=== PATIENT | male | born 1990 | race Hispanic/Latino ===

== ENCOUNTER 2020-11-06 12:43 | Emergency (ER) | payer BC ==
[2020-11-06] MEDS ORDERED: IBUPROFEN 400 MG TAB ONE (15:01)
[2020-11-06] MEDS ORDERED: ACETAMINOPHEN 325 MG TABLET ONE (15:01)
--- NOTE | 2020-11-06 15:51 | EDPHYS ---
Physician Documentation [facility] Name: Hipolito Vieyra Age: 30 yrs Sex: Male : 1990 Arrival Date: 11/06/2020 Time: 12:46 Bed 28 Private MD: ED Physician Mt Peters HPI: 11/06 14:45 This 30 yrs old Male presents to ER via Ambulatory with complaints of Migraine.cp 14:45 The patient complains of pain to the top of head and forehead. cp 14:45 The patient describes the headache as aching. cp 14:45 Onset: The symptoms/episode began/occurred 4 day(s) ago. Associated signs and symptoms: cp Pertinent positives: fever, sore throat, body aches. 14:45 Severity of symptoms: in the emergency department the pain is unchanged, despite home cp interventions. Historical: - Allergies: 13:07 No Known Drug Allergies; ll1 - PMHx: 13:07 Asthma; ll1 - PSHx: 13:07 Hernia repair; ll1 - Immunization history:: Flu vaccine is not up to date. - Social history:: Smoking status: Patient denies any tobacco usage or history of. ROS: 14:50 Constitutional: Positive for body aches, Negative for fever, poor PO intake. cp 14:50 Eyes: Negative for injury, pain, redness, and discharge. cp 14:50 ENT: Positive for sore throat, Negative for drainage from ear(s), ear pain, difficulty swallowing, difficulty handling secretions. 14:50 Neck: Negative for pain with movement, pain at rest, stiffness. 14:50 Cardiovascular: Negative for chest pain, palpitations. 14:50 Respiratory: Negative for cough, shortness of breath, wheezing. 14:50 Abdomen/GI: Negative for abdominal pain, diarrhea, constipation, active vomiting. 14:50 Neuro: Positive for headache, Negative for altered mental status, weakness. 14:50 All other systems are negative. Exam: 14:55 Constitutional: The patient appears in no acute distress, alert, awake, comfortable, cp non-toxic, well developed, well nourished. 14:55 Head/Face: Normocephalic, atraumatic. cp 14:55 Eyes: Periorbital structures: appear normal, Conjunctiva: normal, no exudate, no injection, Sclera: no appreciated abnormality, Lids and lashes: appear normal, bilaterally. 14:55 ENT: External ear(s): are unremarkable, Ear canal(s): are normal, clear, TM's: dullness, bilaterally, Nose: is normal, Mouth: Lips: moist, Oral mucosa: moist, Posterior pharynx: Airway: no evidence of obstruction, patent, Tonsils: no enlargement, no exudate, erythema, that is mild, exudate, is not appreciated. 14:55 Neck: ROM/movement: is normal, is supple, no meningismus, no nuchal rigidity, Lymph nodes: no appreciated lymphadenopathy. 14:55 Chest/axilla: Inspection: normal, Palpation: is normal, no crepitus, no tenderness. 14:55 Cardiovascular: Rate: normal, Rhythm: regular. 14:55 Respiratory: the patient does not display signs of respiratory distress, Respirations: normal, no use of accessory muscles, no retractions, labored breathing, is not present, Breath sounds: are clear throughout, no decreased breath sounds, no stridor, no wheezing. 14:55 Abdomen/GI: Inspection: abdomen appears normal, Palpation: abdomen is soft and non-tender, in all quadrants. 14:55 Neuro: Orientation: to person, place \T\ time. Mentation: is normal, Cerebellar function: is grossly normal, Motor: moves all fours, strength is normal, Sensation: is normal, Gait: is steady, at a normal pace, without difficulty. Vital Signs: 13:04 BP 124 / 68; Pulse 65; Resp 17; Temp 98.5; Pulse Ox 98% ; Weight 72.57 kg; Height 5 ft. ll1 10 in. (177.80 cm); Pain 6/10; 14:21 BP 133 / 74 RA (auto/reg); Pulse 63; Resp 18; Temp 98.2(O); Pulse Ox 98% on R/A; Pain jp3 6/10; 13:04 Body Mass Index 22.96 (72.57 kg, 177.80 cm) ll1 MDM: 14:23 Patient medically screened. cp 15:50 Data reviewed: vital signs, nurses notes, lab test result(s). cp 15:50 Differential diagnosis: meningitis, migraine, sinusitis. Counseling: I had a detailed cp discussion with the patient and/or guardian regarding: the historical points, exam findings, and any diagnostic results supporting the discharge/admit diagnosis, lab results, to return to the emergency department if symptoms worsen or persist or if there are any questions or concerns that arise at home. Response to treatment: the patient's symptoms have mildly improved after treatment, and as a result, I will discharge patient. 11/06 14:39 Order name: Strep 11/06 14:39 Order name: Influenza Screen (a \T\ B) 11/06 14:40 Order name: Group A Streptococcus Rapid Sc; Complete Time: 15:34 EDMI 11/06 15:34 Interpretation: Reviewed. 11/06 14:40 Order name: Influenza Screen (A ; Complete Time: 15:34 EDMS 11/06 15:35 Interpretation: Reviewed. 11/06 15:33 Order name: Throat Culture EDMI 11/06 15:49 Order name: COVID-19 iw Administered Medications: 14:50 Drug: Tylenol 650 mg Route: PO; iw 14:50 Drug: Ibuprofen 800 mg Route: PO; iw Disposition: 11/07 07:05 Co-signature as Attending Physician, Mt Peters MD. rn Disposition: 11/06/20 15:51 Discharged to Home. Impression: Headache. - Condition is Stable. - Discharge Instructions: General Headache Without Cause, COVID-19. - Prescriptions for Naprosyn 500 mg Oral Tablet - take 1 tablet by ORAL route 2 times per day take with food; 20 tablet. - Work release form, Medication Reconciliation Form, Thank You Letter, Antibiotic Education, Prescription Opioid Use form. - Follow up: Private Physician; When: 2 - 3 days; Reason: Worsening of condition. - Problem is new. - Symptoms have improved. Signatures: Dispatcher [employer] EDMI Yesica Cardozo RN RN iw Mt Peters MD MD rn Page, Corey, PA PA cp Lewis, Lynsay, RN RN ll1 Corrections: (The following items were deleted from the chart) 11/06 16:06 15:51 11/06/2020 15:51 Discharged to Home. Impression: Headache. Condition is Stable. iw Forms are Medication Reconciliation Form, Thank You Letter, Antibiotic Education, Prescription Opioid Use. Follow up: Private Physician; When: 2 - 3 days; Reason: Worsening of condition. Problem is new. Symptoms have improved. cp
--- NOTE | 2020-11-06 15:51 | ER ---
Nurse's Notes [facility] Name: Hipolito Vieyra Age: 30 yrs Sex: Male : 1990 Arrival Date: 11/06/2020 Time: 12:46 Bed 28 Private MD: Diagnosis: Headache Presentation: 11/06 13:04 Chief complaint: Patient states: [place], itchy throat, fatigue, weakness since 11/02. No ll1 appetite. [place] hot 11/02. Coronavirus screen: Client denies travel out of the [place] in the last 14 days. fatigue, headache, sore throat, Client presents with at least one sign or symptom that may indicate coronavirus-19. Standard/surgical mask placed on the client. Ebola Screen: Patient denies travel to an Ebola-affected area in the 21 days before illness onset. Initial Sepsis Screen: Does the patient meet any 2 criteria? No. Patient's initial sepsis screen is negative. Does the patient have a suspected source of infection? Yes: Other: headache, malaise. Risk Assessment: Do you want to hurt yourself or someone else? Patient reports no desire to harm self or others. Onset of symptoms was November 02, 2020. 13:04 Method Of Arrival: Ambulatory ll1 13:04 Acuity: HUNG 3 ll1 Historical: - Allergies: 13:07 No Known Drug Allergies; ll1 - PMHx: 13:07 Asthma; ll1 - PSHx: 13:07 Hernia repair; ll1 - Immunization history:: Flu vaccine is not up to date. - Social history:: Smoking status: Patient denies any tobacco usage or history of. Vital Signs: 13:04 BP 124 / 68; Pulse 65; Resp 17; Temp 98.5; Pulse Ox 98% ; Weight 72.57 kg; Height 5 ft. ll1 10 in. (177.80 cm); Pain 6/10; 14:21 BP 133 / 74 RA (auto/reg); Pulse 63; Resp 18; Temp 98.2(O); Pulse Ox 98% on R/A; Pain jp3 6/10; 13:04 Body Mass Index 22.96 (72.57 kg, 177.80 cm) ll1 ED Course: 12:46 Patient arrived in ED. rg4 13:07 Triage completed. ll1 13:07 Arm band placed on Patient placed in an exam room, on a stretcher. ll1 14:17 Manan Díaz PA is PHCP. cp 14:17 Mt Peters MD is Attending Physician. cp 14:22 Bed in low position. Call light in reach. Verbal reassurance given. Pulse ox on. NIBP jp3 on. 14:22 Patient maintains SpO2 saturation greater than 95% on room air. jp3 14:42 Yesica Cardozo, RN is Primary Nurse. iw 14:45 Flu and/or RSV swab sent to lab. Strep swab sent to lab. jp3 Administered Medications: 14:50 Drug: Tylenol 650 mg Route: PO; iw 14:50 Drug: Ibuprofen 800 mg Route: PO; iw Outcome: 15:51 Discharge ordered by . cp 16:06 Patient left the ED. iw Addendum: 11/09/2020 17:34 Addendum: COVID-19 Result: Positive result giiven to ED physician to notify pt. i w Physician: Manan Johnston MD Physician was able to contact pt and pt was notified of positive COVID-19 swab result. Physician answered pt questions. Signatures: Yesica Cardozo, RN RN iw Manan Díaz PA PA Elsa Zepeda rg4 Jerome Lubin jp3 Eduardo Gama RN RN ll1
[2020-11-06 16:10] VITALS: O2SAT 98
[2020-11-06 16:12] VITALS: BP 133/74; TEMP 98.2
== END 2020-11-06 16:06 | disposition home or self-care (01) ==
LOC: ER 12:43
DX: U07.1 COVID-19 (principal)
CPT/HCPCS: 87070; 87081; 87804 ×2; 99284; U0002

== ENCOUNTER 2021-05-18 22:52 | Emergency (ER) | payer BC ==
[2021-05-19] MEDS ORDERED: dexAMETHasone 10 MG/ML VIAL ONE (00:10)
[2021-05-19] MEDS ORDERED: KETOROLAC 30 MG/ML INJ ONE (00:10)
--- NOTE | 2021-05-19 01:44 | ER ---
Nurse's Notes [facility] Name: Hipolito Vieyra Age: 31 yrs Sex: Male : 1990 Arrival Date: 05/18/2021 Time: 22:56 Bed 19 Private MD: Diagnosis: Acute tonsillitis, unspecified;Pharyngitis Presentation: 05/18 23:12 Chief complaint: Patient states: trouble breathing and sore throat for 1.5 days, denies em fever or cough. Coronavirus screen: Client denies travel out of the [place] in the last 14 days. Ebola Screen: Patient negative for fever greater than or equal to 101.5 degrees Fahrenheit, and additional compatible Ebola Virus Disease symptoms Patient denies exposure to infectious person. Patient denies travel to an Ebola-affected area in the 21 days before illness onset. No symptoms or risks identified at this time. Initial Sepsis Screen: Does the patient meet any 2 criteria? No. Patient's initial sepsis screen is negative. Does the patient have a suspected source of infection? No. Patient's initial sepsis screen is negative. Risk Assessment: Do you want to hurt yourself or someone else? Patient reports no desire to harm self or others. Onset of symptoms was May 18, 2021. 23:12 Method Of Arrival: Ambulatory em 23:12 Acuity: HUNG 4 em Historical: - Allergies: 23:13 No Known Allergies; em - PMHx: 23:13 Asthma; em - PSHx: 23:13 hernia repair; em - Immunization history:: Adult Immunizations not up to date. - Social history:: Smoking status: Patient denies any tobacco usage or history of. Screenin:22 Abuse screen: Denies threats or abuse. Nutritional screening: No deficits noted. ea Tuberculosis screening: No symptoms or risk factors identified. Fall Risk None identified. Assessment: 23:22 General: Appears uncomfortable, Behavior is calm, cooperative, appropriate for age. ea Pain: Complains of pain in sore throat. Neuro: Level of Consciousness is awake, alert, obeys commands, Oriented to person, place, time. Cardiovascular: Patient's skin is warm and dry. Respiratory: Airway is patent Respiratory effort is even, unlabored, Respiratory pattern is regular, symmetrical. Derm: Skin is pink, warm \T\ dry. 05/19 00:00 Reassessment: Patient and/or family updated on plan of care and expected duration. Pain ea level reassessed. Patient is alert, oriented x 3, equal unlabored respirations, skin warm/dry/pink. 01:11 Reassessment: Patient and/or family updated on plan of care and expected duration. Pain ea level reassessed. Patient is alert, oriented x 3, equal unlabored respirations, skin warm/dry/pink. Vital Signs: 05/18 23:12 BP 135 / 84; Pulse 83; Resp 16; Temp 99.3; Pulse Ox 98% on R/A; Weight 72.57 kg; Height em 5 ft. 10 in. (177.80 cm); 23:12 Body Mass Index 22.96 (72.57 kg, 177.80 cm) em ED Course: 22:56 Patient arrived in ED. es 23:13 Triage completed. em 23:14 Arm band placed on. em 23:22 Gladys Delgado RN is Primary Nurse. ea 23:22 Patient has correct armband on for positive identification. Bed in low position. Call ea light in reach. 23:31 Peter Gunn MD is Attending Physician. [facility] 05/19 01:42 Jess Woodruff MD is Referral Physician. [facility] 01:45 No provider procedures requiring assistance completed. Patient did not have IV access ea during this emergency room visit. Administered Medications: 05/18 23:56 Drug: Ketorolac 60 mg Route: IM; Site: left deltoid; ea 05/19 01:50 Follow up: Response: No adverse reaction ea 05/18 23:56 Drug: Decadron (dexamethasone) 10 mg Route: IM; Site: right deltoid; ea 05/19 01:50 Follow up: Response: No adverse reaction ea Outcome: 01:43 Discharge ordered by . [facility] 01:45 Condition: stable ea 01:53 Discharged to home ambulatory, with family. ea 01:53 Discharge instructions given to patient, Instructed on discharge instructions, follow up and referral plans. medication usage, Demonstrated understanding of instructions, follow-up care, medications, Prescriptions given X 2. 01:54 Patient left the ED. ea Signatures: Isabelle Rockwell Edgar, RN RN Gladys Delgado RN RN ea Holmes, Maurice, MD MD mh7
--- NOTE | 2021-05-19 01:44 | EDPHYS ---
Physician Documentation [facility] Name: Hipolito Vieyra Age: 31 yrs Sex: Male : 1990 Arrival Date: 05/18/2021 Time: 22:56 Bed 19 Private MD: ED Physician Peter Gunn HPI: 05/19 00:17 This 31 yrs old Male presents to ER via Ambulatory with complaints of mh7 Breathing Difficulty. 00:17 The patient presents with sore throat. The patient describes throat pain as mh7 intermittent, scratchy. Onset: The symptoms/episode began/occurred 2 day(s) ago. Severity of symptoms: At their worst the symptoms were moderate, yesterday, in the emergency department the symptoms are unchanged. Modifying factors: The symptoms are alleviated by nothing, the symptoms are aggravated by swallowing, The patient has had contact with sick co-worker(s). 00:18 Associated signs and symptoms: Pertinent positives: dysphagia, Sore throat Pertinent mh7 negatives chest pain, chills, cough, diarrhea, earache, fever, flu-like symptoms, headache, nausea, rhinorrhea, shortness of breath, vomiting. Historical: - Allergies: 05/18 23:13 No Known Allergies; em - PMHx: 23:13 Asthma; em - PSHx: 23:13 hernia repair; em - Immunization history:: Adult Immunizations not up to date. - Social history:: Smoking status: Patient denies any tobacco usage or history of. ROS: 05/19 00:18 Constitutional: Negative for fever, chills, and weight loss, Eyes: Negative for injury, mh7 pain, redness, and discharge, Neck: Negative for injury, pain, and swelling, Cardiovascular: Negative for chest pain, palpitations, and edema, Respiratory: Negative for shortness of breath, cough, wheezing, and pleuritic chest pain, Abdomen/GI: Negative for abdominal pain, nausea, vomiting, diarrhea, and constipation, Back: Negative for injury and pain, : Negative for injury, bleeding, discharge, and swelling, MS/Extremity: Negative for injury and deformity, Skin: Negative for injury, rash, and discoloration, Neuro: Negative for headache, weakness, numbness, tingling, and seizure, Psych: Negative for depression, anxiety, suicide ideation, homicidal ideation, and hallucinations, Allergy/Immunology: Negative for hives, rash, and allergies, Endocrine: Negative for neck swelling, polydipsia, polyuria, polyphagia, and marked weight changes, Hematologic/Lymphatic: Negative for swollen nodes, abnormal bleeding, and unusual bruising. Exam: 00:18 Constitutional: This is a well developed, well nourished patient who is awake, alert, mh7 and in no acute distress. Head/Face: Normocephalic, atraumatic. Eyes: Pupils equal round and reactive to light, extra-ocular motions intact. Lids and lashes normal. Conjunctiva and sclera are non-icteric and not injected. Cornea within normal limits. Periorbital areas with no swelling, redness, or edema. 00:18 Neck: Trachea midline, no thyromegaly or masses palpated, and no cervical lymphadenopathy. Supple, full range of motion without nuchal rigidity, or vertebral point tenderness. No Meningismus. Chest/axilla: Normal chest wall appearance and motion. Nontender with no deformity. No lesions are appreciated. Cardiovascular: Regular rate and rhythm with a normal S1 and S2. No gallops, murmurs, or rubs. Normal PMI, no JVD. No pulse deficits. Respiratory: Lungs have equal breath sounds bilaterally, clear to auscultation and percussion. No rales, rhonchi or wheezes noted. No increased work of breathing, no retractions or nasal flaring. Abdomen/GI: Soft, non-tender, with normal bowel sounds. No distension or tympany. No guarding or rebound. No evidence of tenderness throughout. Back: No spinal tenderness. No costovertebral tenderness. Full range of motion. Skin: Warm, dry with normal turgor. Normal color with no rashes, no lesions, and no evidence of cellulitis. MS/ Extremity: Pulses equal, no cyanosis. Neurovascular intact. Full, normal range of motion. Neuro: Awake and alert, GCS 15, oriented to person, place, time, and situation. Cranial nerves II-XII grossly intact. Motor strength 5/5 in all extremities. Sensory grossly intact. Cerebellar exam normal. Normal gait. Psych: Awake, alert, with orientation to person, place and time. Behavior, mood, and affect are within normal limits. 00:18 ENT: External ear(s): are unremarkable, Ear canal(s): are normal, clear, TM's: are normal, Nose: is normal, Mouth: is normal, Posterior pharynx: Airway: normal, Tonsils: bilaterally enlarged, with erythema, Uvula: normal, swelling, is not appreciated, erythema, that is moderate, exudate, is not appreciated, peritonsillar mass, is not appreciated, pooling of secretions, is not appreciated, Dental exam: normal, Voice: is normal. Vital Signs: 05/18 23:12 BP 135 / 84; Pulse 83; Resp 16; Temp 99.3; Pulse Ox 98% on R/A; Weight 72.57 kg; Height em 5 ft. 10 in. (177.80 cm); 23:12 Body Mass Index 22.96 (72.57 kg, 177.80 cm) em MDM: 05/19 01:39 Differential diagnosis: group A strep tonsillitis, laryngitis, pharyngitis, mh7 tonsillitis, viral syndrome. Data reviewed: vital signs, nurses notes, lab test result(s), Flu: negative. Data interpreted: Pulse oximetry: on room air is 98 %. Interpretation: normal. Response to treatment: the patient's symptoms have resolved after treatment, the patient's blood pressure is in an acceptable range, mental status has returned to baseline, the patient no longer shows bradycardia, the patient is not short of breath, the patient is not tachycardic, the patient's pain is gone, the patient's temperature has normalized, patient is well hydrated. Tolerating oral intake without difficulty. 01:43 Patient medically screened. [facility] 05/18 23:15 Order name: Flu; Complete Time: 01:39 em 05/18 23:15 Order name: Strep; Complete Time: 01:39 em 05/19 00:22 Order name: SARS-COV-2 RT PCR; Complete Time: 01:39 EDMS 05/19 00:28 Order name: Throat Culture EDMS Administered Medications: 05/18 23:56 Drug: Ketorolac 60 mg Route: IM; Site: left deltoid; ea 05/19 01:50 Follow up: Response: No adverse reaction ea 05/18 23:56 Drug: Decadron (dexamethasone) 10 mg Route: IM; Site: right deltoid; ea 05/19 01:50 Follow up: Response: No adverse reaction ea Disposition Summary: 05/19/21 01:43 Discharge Ordered Location: Home [facility] Problem: new [facility] Symptoms: have improved [facility] Condition: Stable [facility] Diagnosis - Acute tonsillitis, unspecified [facility] - Pharyngitis [facility] Followup: [facility] - With: Private Physician - When: 1 - 2 days - Reason: Worsening of condition, Recheck today's complaints, Continuance of care, Re-evaluation by your physician Followup: [facility] - With: Jess Woodruff MD - When: 2 - 3 days - Reason: Worsening of condition, Recheck today's complaints Discharge Instructions: - Discharge Summary Sheet [facility] - Tonsillitis, [id number] [facility] - Pharyngitis, [id number] [facility] Forms: - Work release form ea - Medication Reconciliation Form [facility] - Thank You Letter [facility] - Antibiotic Education [facility] - Prescription Opioid Use [facility] - Family Work Release Prescriptions: - penicillin V potassium 500 mg Oral tablet - take 1 tablet by ORAL route every 12 hours for 10 days; 20 tablet; Refills: 0, [facility] Product Selection Permitted - Ibuprofen 800 mg Oral Tablet - take 1 tablet by ORAL route every 8 hours As needed take with food; 15 tablet; 7 Refills: 0, Product Selection Permitted Signatures: Dispatcher [employer] Judson Russell, RN RN Gladys Diallo RN RN Peter Meraz MD MD [facility] Corrections: (The following items were deleted from the chart) 05/18 23:28 23:15 CORONAVIRUS+[id number].[email or web address].BRZ ordered. YONI VALLEJO
[2021-05-19 05:22] VITALS: BP 135/84; TEMP 99.3; O2SAT 98
== END 2021-05-19 01:54 | disposition home or self-care (01) ==
LOC: ER 22:52
DX: J03.90 Acute tonsillitis, unspecified (principal); Z20.822 Contact with and (suspected) exposure to COVID-19
CPT/HCPCS: 87070; 87081; 87804 ×2; 96372; 99283; U0003